=== PATIENT | female | born 1975 | race African-American/Black ===

== ENCOUNTER → 2020-03-07 | Outpatient (CLI) | payer OTHER ==
[2020-03-07 16:52] LABS: BASO % 1 % (0-3); EOS # 0.1 x10^3/uL (0.0-0.7); EOS % 3 % (0-3); HEMATOCRIT 35.9 % (36.0-47.0); HEMOGLOBIN 11.9 g/dL (12.0-15.5); LYMPH # 1.6 x10^3/uL (1.0-4.8); LYMPH % 46 % (24-48); MEAN CORPUSCULAR HEMOGLOBIN 31 pg (25-35); MEAN CORPUSCULAR HGB CONC 33 g/dL (31-37); MEAN CORPUSCULAR VOLUME 94 fL (79-100); MONO # 0.3 x10^3/uL (0.0-1.1); MONO % 8 % (0-9); NEUT # 1.5 x10^3uL (1.8-7.7); NEUT % 42 % (31-73); PLATELET COUNT 175 x10^3/uL (140-400); RED BLOOD COUNT 3.82 x10^6/uL (3.50-5.40); RED CELL DISTRIBUTION WIDTH 14.5 % (11.5-14.5); WHITE BLOOD COUNT 3.5 x10^3/uL (4.0-11.0)
[2020-03-08 16:07] LABS: RUBELLA IGG ANTIBODY 6.6 index (Immune >0.99)
[2020-03-08 20:09] LABS: FREE T4 0.93 ng/dL (0.76-1.46); THYROID STIM HORMONE (TSH) 0.666 uIU/mL (0.358-3.740)
== END | disposition home or self-care (01) ==
LOC: LAB 14:27
PROVIDERS: ATTEND Obstetrics & Gynecology
DX: O09.91 Supervision of high risk pregnancy, unspecified, first trimester (principal); Z3A.00 Weeks of gestation of pregnancy not specified
CPT/HCPCS: 36415; 84439; 84443; 84702; 85025; 85660; 86592; 86703; 86762; 86787; 86803; 86850; 86900; 86901; 87340

== ENCOUNTER → 2020-03-10 | Outpatient (CLI) | payer OTHER ==
--- NOTE | 2020-03-10 10:57 | RAD ---
EXAM: First Trimester OB Ultrasound INDICATION: Reason: QUANT UNCHANGED OVER A WEEK, BLEEDING / Spl. Instructions: / History: By report, beta-hCG is greater than 6000 TECHNIQUE: Real-time first trimester obstetrical ultrasound was performed with permanent freeze-frame documentation. Transabdominal and endovaginal ultrasound was performed. COMPARISON: None available FINDINGS: GESTATIONAL SAC: No intrauterine gestation is identified. POLE: No pole identified no yolk sac seen. CROWN RUMP LENGTH: Not applicable HEART RATE: Not applicable PLACENTA: Not applicable MATERNAL UTERUS: In the anterior uterine fundus, and endometrial myometrial mass 1.6 x 1.5 cm is seen MATERNAL ADNEXA: Normal left ovary measuring 2.8 x 2.7 x 1.8 cm. Right ovary measures 4.5 x 2.9 x 1.9 cm and contains a thick-walled cystic structure suggestive of a corpus luteum. Cyst diameter is 1.2 cm which would correspond to a gestational age of 6 weeks and 0 days if this represented a gestational sac. No adnexal tenderness. No pelvic free fluid. AGE/DATES: Gestational Age by LMP: 9 weeks 3 days Gestational Age by US: Undetermined EDC by LMP: October 10, 2020 EDC by US: Undetermined IMPRESSION: Sonographic findings consistent with a of unknown location. Ectopic has not been excluded. Recommend correlation with serial beta hCG measurements and consider follow-up ultrasound in 7-11 days. FOR INTERNAL CODING PURPOSES Critical result: Findings discussed with ANTONIO GONZALES at 03/10/2020 10:44 AM. RESULT CODE: (C) Electronically signed by: Reba Campuzano MD (03/10/2020 10:55 AM) [id number]
== END | disposition home or self-care (01) ==
LOC: US 08:46
PROVIDERS: ATTEND Obstetrics & Gynecology
DX: O09.91 Supervision of high risk pregnancy, unspecified, first trimester (principal); N83.201 Unspecified ovarian cyst, right side; Z3A.01 Less than 8 weeks gestation of pregnancy
CPT/HCPCS: 76801; 76817

== ENCOUNTER → 2020-03-14 | Outpatient (CLI) | payer OTHER | END | disposition home or self-care (01) | LOC: LAB 13:42 | PROVIDERS: ATTEND Obstetrics & Gynecology | DX: O00.90 Unspecified ectopic pregnancy without intrauterine pregnancy (principal) | CPT/HCPCS: 36415; 84702 ==

== ENCOUNTER → 2020-03-16 | Outpatient (CLI) | payer OTHER | END | disposition home or self-care (01) | LOC: LAB 14:45 | PROVIDERS: ATTEND Obstetrics & Gynecology | DX: O00.90 Unspecified ectopic pregnancy without intrauterine pregnancy (principal); Z3A.10 10 weeks gestation of pregnancy | CPT/HCPCS: 36415; 84702 ==

== ENCOUNTER → 2020-03-28 | Outpatient (CLI) | payer OTHER | END | disposition home or self-care (01) | LOC: LAB 15:43 | PROVIDERS: ATTEND Obstetrics & Gynecology | DX: O00.90 Unspecified ectopic pregnancy without intrauterine pregnancy (principal); Z3A.17 17 weeks gestation of pregnancy | CPT/HCPCS: 36415; 84702 ==

== ENCOUNTER → 2020-12-14 | Outpatient (CLI) | payer OTHER ==
--- NOTE | 2020-12-14 13:53 | RAD ---
EXAM: Bilateral knees, standing view. HISTORY: Pain. COMPARISON: 07/03/2020. FINDINGS: A frontal view both knees is obtained. There is no fracture, dislocation or subluxation. Th ere is a bone island within the left lateral femoral condyle. IMPRESSION: No acute osseous finding. Electronically signed by: Vanessa Chavez MD (12/14/2020 1:51 PM) [id number]
== END ==
LOC: RAD 13:09
PROVIDERS: ATTEND Physician Assistant
DX: M25.562 Pain in left knee (principal)
CPT/HCPCS: 73565